=== PATIENT | female | born 2000 | race Caucasian/White ===

== ENCOUNTER 2024-05-03 23:18 | Emergency (ER) | payer OTHER, SELFPAY ==
[2024-05-03 23:23] VITALS: BP 149/74
--- NOTE | 2024-05-04 01:49 | ED.GENMED ---
History of Present Illness
General
Chief Complaint: Fall
Source: patient
Exam Limitations: none
Time Seen by Provider: 05/04/24 00:41
History of Present Illness
History of Present Illness:
This is a 23 year old female that comes in with c/o laceration to the chin. States that she was coming down the steps in stocking feet and she slipped and fell forward onto the hard wood floor. States that she hit her chin. States that she didn't
even know that she was bleeding until someone told her. Denies any LOC or any other discomfort. States that her Tetanus shot is up to date. Denies any fever, chills, chest pain, SOB, abd pain, nausea, vomiting, diarrhea, headache.
Past History
Past History
ED Past Medical History: None
ED Past Surgical History: None
Social History
Tobacco: Non-smoker
Alcohol: None
Personal: Single
Living: with family
Review of Systems
Review of Systems
All Other Systems: ROS reviewed and negative except as documented in HPI and ROS
Constitutional: Reports no symptoms; Denies fever or chills
EENT: Reports no symptoms
Respiratory: Reports no symptoms; Denies cough or trouble breathing
Cardiac: Reports no symptoms; Denies chest pain
ABD/GI: Reports no symptoms; Denies abdominal pain, nausea, vomiting or diarrhea
: Reports no symptoms
Musculoskeletal: Reports no symptoms
Skin: Reports other (Laceration to chin)
Neurological: Reports no symptoms; Denies dizzy
Psychiatric: Reports no symptoms
Phy Exam
General Physical Exam
General Presentation: well appearing and no apparent distress
General age: appears stated age
General Skin: warm and dry
General Habitus: normal
General Mental: alert
General Hydration: appears well hydrated
ENT Exam
ENT Exam: TM's normal, pharynx normal and neck supple
Eye Exam
Eye Exam: EOMI
Cardiovascular Exam
Cardiovascular Exam: regular rate/rhythm, no edema, no murmur and normal peripheral pulses
Pulmonary Exam
Pulmonary Exam: lungs clear, no respiratory distress, no rales, chest non tender, no crackles, no rhonchi, no wheezing and no cough
Musculoskeletal Exam
Musculoskeletal Exam: full ROM, no edema and other (Negative for any cervical tenderness. Patient can open mouth without discomfort)
Skin Exam
Skin Exam: normal color, warm/dry, no rash and no petechia
Psychiatric Exam
Psychiatric Exam: normal mood/affect
Course
Vital Signs
Initial and Last Documented VS:
Initial Vital Signs
Temp Pulse Resp BP Pulse Ox
98 F 89 16 149/74 97
05/03/24 23:23 05/03/24 23:23 05/03/24 23:23 05/03/24 23:23 05/03/24 23:23
Last Documented Vital Signs
Temp Pulse Resp BP Pulse Ox
98 F 89 16 149/74 97
05/03/24 23:23 05/03/24 23:23 05/03/24 23:23 05/03/24 23:23 05/03/24 23:23
Procedures
Laceration Closure
Lower Chin:
Status of Wound: clean
Size of Wound in cm: 4
Description of Wound Edges: sharp
Preparation: cleaned with saline
Anesthesia: 1% Lidocaine with epi
Revision/Debridement: routine- no revision
Wound exploration: explored to base- no FB
Type of Closure: single layer closure
Skin Closure Material: 6-0 prolene
Number of sutures: 8
MDM/Problems Addressed
Differential Diagnosis Includes:
Laceration chin
MDM/Problems Addressed:
This is a 23 year old female that comes in with c/o laceration to the chin after falling forward when coming down the steps and hitting the floor.
Will suture chin laceration and discharge home.
Chronic conditions affecting care:
NA
Acute Exacerbation and/or Progression of Chronic Illness:
NA
*Pulse Oximetry
Patient hypoxic: no
*EKG
Interpreted by ED Provider?: NA
Rate: EKG- N/A
*Building Maintenance Technician Interpretation
Rate: Building Maintenance Technician- N/A
*Critical Care Note
Total Time (30-74mins, 75-104mins- exclusive of procedures): Not Applicable
ED Attending Note
-
Portions of this chart may have been created with voice recognition software.� Occasional wrong word or��sound alike� substitutions may have occurred due to the inherent limitations of voice recognition software.
Discharge Plan
Departure
Patient Disposition: Home (Routine Discharge)
Date of Disposition: 05/04/24
Time of Disposition: 01:55
Patient with high blood pressure during this ER visit?: Yes
Condition: Good
Covid-19: Not Applicable
Discharge Problem:
Chin laceration
Instructions: Laceration Repair With Stitches (DC), BLOOD PRESSURE
Prescriptions:
No Action
No Current Medications
0
Referrals:
Cristian Galan DO [Family Provider] - Follow up in 10 days
Activity Restrictions/Additional Instructions:
As discussed, you have had [address] Please keep this area dry for the next 24 hours. Then you may gently wash with warm soapy water and pat but do not scrub. Follow up with the family doctor in 7-10 days for suture removal. IF YOU HAVE ANY
OTHER CONCERNS PLEASE RETURN TO THE EMERGENCY ROOM.
Interventions
Interventions:
*Risk Screen - Suicide Last Done: 05/03/24 23:19
*Neglect/Abuse Screening Last Done: 05/03/24 23:19
ED-Musculoskeletal Assessment Last Done: 05/04/24 00:23
ED- Neurological Assessment Last Done: 05/04/24 00:22
ED-Skin Assessment Last Done: 05/04/24 00:23
Discharge Date and Time
Print Language: MALTESE
[2024-05-04 02:11] VITALS: BP 113/65
== END 2024-05-04 02:13 | disposition home or self-care (01) ==
LOC: EMR 23:18
PROVIDERS: EMERGENCY PHYSICIAN Emergency Medicine; FAMILY PHYSICIAN Family Medicine
DX: S01.81XA Laceration without foreign body of other part of head, initial encounter (principal); W10.9XXA Fall (on) (from) unspecified stairs and steps, initial encounter
CPT/HCPCS: 99282; 12013